=== PATIENT | female | born 1985 | race Caucasian/White ===

== ENCOUNTER 2024-12-21 23:47 | Emergency (ER) | payer SELFPAY ==
[2024-12-22] MEDS ORDERED: diphenhydrAMINE 50 MG/ML SDV IVPUSH ONE (00:05)
== END 2024-12-22 00:06 | disposition left against medical advice (07) ==
LOC: DL.ED 23:47
DX: R51.9 Headache, unspecified (principal)
CPT/HCPCS: 99282; 99283